=== PATIENT | male | born 1980 | race Caucasian/White ===

== ENCOUNTER 2018-09-06 19:44 | Emergency (ER) | payer OTHER ==
--- NOTE | 2018-09-06 19:50 | PDOC ---
Rapid Medical Evaluation Time Seen by Provider: 09/06/18 19:48 Medical Evaluation: 09/06/18 19:48 HPI: 2 months of lower back and L sided flank pain history of renal stones, hx of stones, took flomax and naproxen without relief from PCP PE:No gross deficits ORDERS: UA, CBC, CT scan Torodol 09/06/18 19:50 Discharge Disposition - Diagnosis Back pain - Referrals - Patient Instructions - Post Discharge Activity
[2018-09-06 19:51] VITALS: BMI 20.3
[2018-09-06] MEDS ORDERED: KETOROLAC TROMETHAMINE 60 MG/2 ML VIAL IM ONE (19:51)
--- NOTE | 2018-09-06 20:33 | PDOC ---
History of Present Illness - General Chief Complaint: Pain Stated Complaint: PAIN ON THE LEFT SIDE Time Seen by Provider: 09/06/18 19:48 History Source: Patient Exam Limitations: No Limitations - History of Present Illness Initial Comments: 09/06/18 21:10 HISTORY OF PRESENT ILLNESS: This is a 38-year-old male with past medical history of kidney stones presents emergency department for evaluation of intermittent left flank pain for one month now been persistent for the past 7- 10 days. Patient was seen by his primary doctor started him on Flomax and Naprosyn no other testing was performed according to the patient. Patient reports the pain starts in the left flank and is radiating to his left lower quadrant and into his left testicle. He denies any dysuria or hematuria. He denies any diarrhea, constipation or rectal bleeding. Patient reports having intermittent nausea but has not vomited. Patient denies any unprotected sex. No recent travel or sick contacts. PAST MEDICAL HISTORY: see HPI SURGICAL HISTORY: Denies ALLERGIES: No known drug allergies REVIEW OF SYSTEMS General/Constitutional: Denies fever or chills. Denies weakness, weight change. HEENT: Denies change in vision. Denies ear pain or discharge. Denies sore throat. Cardiovascular: Denies chest pain or shortness of breath. Respiratory: Denies cough, wheezing, or hemoptysis. Gastrointestinal: Denies nausea, vomiting, diarrhea or constipation. Denies rectal bleeding. Genitourinary: see HPI Musculoskeletal: Denies joint or muscle swelling or pain. Denies neck or back pain. Skin and breasts: Denies rash or easy bruising. Neurologic: Denies headache, vertigo, loss of consciousness, or loss of sensation. Psychiatric: Denies depression or anxiety. Endocrine: Denies increased thirst. Denies abnormal weight change. Hematologic/Lymphatic: Denies anemia, easy bleeding, or history of blood clots. Allergic/Immunologic: Denies hives or skin allergy. Denies latex allergy. PHYSICAL EXAM General Appearance: Well-appearing, appropriately dressed. No apparent distress , no intoxication. Respiratory/Chest: Lungs CTAB. No shortness of breath, chest tenderness, respiratory distress, accessory muscle use. No crackles, rales, rhonchi, stridor , wheezing, dullness Cardiovascular: RRR. S1, S2. No JVD, murmur, bradycardia, tachycardia. Vascular Pulses: Dorsalis-Pedis (R): 2+, Dorsalis-Pedis (L): 2+ Gastrointestinal/Abdominal: Normal bowel sounds. Abdomen soft, non-distended. LLQ tenderness. No rebound tenderness. Negative Psoas/obturator signs. No organomegaly, pulsatile mass, guarding, hernia, hepatomegaly, splenomegaly. Genital exam unremarkable. Lymphatic: No adenopathy, tenderness. Musculoskeletal/Extremities: Normal inspection. FROM of all extremities, normal capillary refill. Pelvis Stable. Left CVA tenderness. No tenderness to extremities, pedal edema, swelling, erythema or deformity. Past History - Past Medical History Allergies/Adverse Reactions: Allergies Allergy/AdvReac Type Severity Reaction Status Date / Time No Known Allergies Allergy Verified 09/06/18 19:50 Home Medications: Ambulatory Orders NK [No Known Home Medication] 09/06/18 COPD: No Kidney Stones: Yes - Immunization History Immunization Up to Date: No - Suicide/Smoking/Psychosocial Hx Smoking History: Current every day smoker Have you smoked in the past 12 months: Yes Number of Cigarettes Smoked Daily: 20 Information on smoking cessation initiated: No Hx Alcohol Use: No Drug/Substance Use Hx: No *Physical Exam - Vital Signs Last Vital Signs Temp Pulse Resp BP Pulse Ox 84 18 108/83 100 09/06/18 19:49 09/06/18 19:49 09/06/18 19:49 09/06/18 19:49 ED Treatment Course - LABORATORY CBC & Chemistry Diagram: 09/06/18 21:02 09/06/18 21:02 - RADIOLOGY Radiology Studies Ordered: Category Date Time Status SPIRAL- RENAL-STONE CT [CT] Stat CT Scan 09/06/18 20:32 Ordered Medical Decision Making - Medical Decision Making 09/06/18 21:12 A/P: 38-year-old male with left flank pain for 7-10 days Left CVA tenderness Left lower quadrant tenderness appreciated Negative psoas and obturator signs Differential diagnosis includes but is not limited to pyelonephritis, renal calculus, STI Labs Urine Spiral CT to rule out stone Toradol 60 mg IM Reassess 09/06/18 23:24 Laboratory testing unremarkable. Urinalysis is unremarkable. CAT scan is read by Dr. Stephen: No CT evidence of urolithiasis or obstructive uropathy. Minimal to mild prostate enlargement. The liver, spleen, pancreas, gallbladder, adrenal glands and kidneys are history no discrete noncontrast pathology. There is no aortic aneurysm. No obvious lymphadenopathy is noted. There is no evidence of pneumoperitoneum, free intraperitoneal fluid or bowel obstruction. Partially visualized appendix demonstrates no gross abnormality. There is also no gross CT evidence of acute appendicitis. Patient reports significant pain relief after Toradol. I discussed the physical exam findings, ancillary test results and final diagnoses with the patient. I answered all of the patient's questions. The patient was satisfied with the care received and felt comfortable with the discharge plan and treatment plan. The patient will call their primary care physician within 24 hours to arrange follow-up and will return to the Emergency Department with any new, persistent or worsening symptoms. *DC/Admit/Observation/Transfer Diagnosis at time of Disposition: Back pain Qualifiers: Back pain location: low back pain Chronicity: chronic Back pain laterality: left Sciatica presence: without sciatica Qualified Code(s): M54.5 - Low back pain; G89.29 - Other chronic pain - Discharge Dispostion Disposition: HOME Condition at time of disposition: Fair Decision to Admit order: No - Referrals Referrals: Cassie Bentley [Primary Care Provider] - - Patient Instructions Additional Instructions: Rest. Take Tylenol or naproxen as needed for pain. Follow manufacturers instructions for appropriate dosage. Warm moist heat applied to your back may help alleviate pain. Return to emergency department for discoloration of the foot, numbness or tingling to the foot, worsening pain, or any other concerns. Thank you very much for choosing us to provide your emergent healthcare needs. - Post Discharge Activity
[2018-09-06] MEDS ORDERED: KETOROLAC TROMETHAMINE 60 MG/2 ML VIAL ONE (20:52)
[2018-09-06 21:09] LABS: BASO % 0.8 % (0-2.0); EOS % 1.9 % (0-4.5); HEMATOCRIT 46.1 % (35.4-49); LYMPH % 27.2 % (8-40); MCH 30.5 pg (25.7-33.7); MCHC 32.6 g/dl (32.0-35.9); MEAN CELL VOLUME 93.4 fl (80-96); MEAN PLT VOLUME 7.8 fl (7.5-11.1); MONO % 10.8 % (3.8-10.2); NEUT % 59.3 % (42.8-82.8); PLATELET COUNT 219 K/MM3 (134-434); RBC 4.94 M/mm3 (4.00-5.60); RDW 13.5 % (11.9-15.9); WHITE BLOOD COUNT 6.4 K/mm3 (4.0-10.0)
[2018-09-06 21:36] LABS: ALBUMIN 4.2 g/dl (3.4-5.0); BILIRUBIN,TOTAL 0.2 mg/dL (0.2-1); CALCIUM 9.6 mg/dL (8.5-10.1); CREATININE 1.1 mg/dL (0.55-1.3); POTASSIUM 4.3 mmol/L (3.5-5.1); TOT PROT 7.1 g/dl (6.4-8.2)
[2018-09-06 22:09] LABS: PH,URINE 6.5 (5.0-8.0); URINE APPEARANCE CLEAR; URINE BILIRUBIN NEGATIVE (NEGATIVE); URINE COLOR YELLOW; URINE GLUCOSE (UA) NEGATIVE (NEGATIVE); URINE KETONE NEGATIVE (NEGATIVE); URINE LEUK ESTERASE NEGATIVE (NEGATIVE); URINE NITRITE NEGATIVE (NEGATIVE); URINE PROTEIN NEGATIVE (NEGATIVE)
--- NOTE | 2018-09-06 22:37 | PDOC ---
*Physical Exam - Vital Signs Last Vital Signs Temp Pulse Resp BP Pulse Ox 84 18 108/83 100 09/06/18 19:49 09/06/18 19:49 09/06/18 19:49 09/06/18 19:49 ED Treatment Course - LABORATORY CBC & Chemistry Diagram: 09/06/18 21:02 09/06/18 21:02 - ADDITIONAL ORDERS Additional order review: Laboratory Results 09/06/18 21:02 Sodium 140 Potassium 4.3 Chloride 105 Carbon Dioxide 30 Anion Gap 5 L BUN 19 H Creatinine 1.1 Est GFR (CKD-EPI)AfAm 99.57 Est GFR (CKD-EPI)NonAf 85.91 Random Glucose 86 Calcium 9.6 Total Bilirubin 0.2 AST 11 L ALT 19 Alkaline Phosphatase 46 Total Protein 7.1 Albumin 4.2 09/06/18 21:02 RBC 4.94 MCV 93.4 MCHC 32.6 RDW 13.5 MPV 7.8 Neutrophils % 59.3 Lymphocytes % 27.2 Monocytes % 10.8 H Eosinophils % 1.9 Basophils % 0.8 - Medications Given in the ED: ED Medications Discontinued Medications Generic Name Dose Route Start Last Admin Trade Name Freq PRN Reason Stop Dose Admin Ketorolac Tromethamine 60 mg 09/06/18 19:51 09/06/18 21:00 Toradol Injection - IM 09/06/18 19:52 60 mg ONCE ONE Administration Medical Decision Making - Medical Decision Making 09/06/18 22:36 Patient seen by the advanced practice provider under my direct supervision. Ancillary testing reviewed as necessary. I agree with plan as outlined by the advanced practice provider. *DC/Admit/Observation/Transfer Diagnosis at time of Disposition: Back pain - Referrals Referrals: Cassie Bentley [Primary Care Provider] - - Patient Instructions - Post Discharge Activity
[2018-09-06 23:39] VITALS: BP 106/80; PULSE 80
== END 2018-09-06 23:41 | disposition home or self-care (01) ==
LOC: JER 19:44
DX: M54.5 Low back pain (principal)
CPT/HCPCS: 36415; 74176-TC; 80053; 81003; 85025; 87086; 99282-25

== ENCOUNTER 2019-04-02 14:04 | Emergency (ER) | payer OTHER ==
[2019-04-02 14:09] VITALS: BP 128/70; PULSE 88; TEMP 98.2; BMI 18.3
--- NOTE | 2019-04-02 17:14 | PDOC ---
History of Present Illness - General Chief Complaint: Chest Pain Stated Complaint: CHEST PAIN Time Seen by Provider: 04/02/19 15:11 - History of Present Illness Initial Comments: 04/02/19 17:12 38-year-old male without comorbidities presents for evaluation of atraumatic chest pain which started this morning. He states the chest pain radiates to his back he has no systemic symptoms comorbidities and has never experienced this pain before pain is exacerbated with activity and relieved with rest no radiation into the jaw or arm Past History - Past Medical History Allergies/Adverse Reactions: Allergies Allergy/AdvReac Type Severity Reaction Status Date / Time No Known Allergies Allergy Verified 04/02/19 14:09 Home Medications: Ambulatory Orders NK [No Known Home Medication] 09/06/18 COPD: No Kidney Stones: Yes - Immunization History Immunization Up to Date: No - Psycho Social/Smoking Cessation Hx Smoking History: Never smoked Have you smoked in the past 12 months: Yes Number of Cigarettes Smoked Daily: 20 Information on smoking cessation initiated: No Hx Alcohol Use: No Drug/Substance Use Hx: No Review of Systems - Review of Systems Cardiac (ROS): Yes: Chest Pain *Physical Exam - Vital Signs Last Vital Signs Temp Pulse Resp BP Pulse Ox 98.2 F 88 20 128/70 98 04/02/19 14:06 04/02/19 14:06 04/02/19 14:06 04/02/19 14:06 04/02/19 16:00 - Physical Exam 04/02/19 17:12 GENERAL: The patient is awake, alert, and fully oriented, in no acute distress. HEAD: Normal with no signs of trauma. EYES: sclera anicteric, conjunctiva clear. ENT: Ears normal tympanic membranes normal oropharynx clear uvula midline NECK: Normal range of motion LUNGS: Breath sounds equal, clear to auscultation bilaterally. No wheezes, and no crackles. HEART: S1 and S2 without murmur, rub or gallop. ABDOMEN: Soft, nontender, normoactive bowel sounds. No guarding, no rebound. No masses. EXTREMITIES: Normal range of motion, no edema. No clubbing or cyanosis. No cords, erythema, or tenderness. NEUROLOGICAL: Cranial nerves II through XII grossly intact. Normal speech, normal gait. PSYCH: Normal mood, normal affect. SKIN: Warm, Dry, normal turgor, no rashes or lesions noted. There is thoracic para musculature tenderness on the right. No gross sensorimotor deficits bilateral upper or lower extremities. No costochondral tenderness. ED Treatment Course - RADIOLOGY Radiology Studies Ordered: Category Date Time Status CHEST PA & LAT [RAD] Stat Radiology 04/02/19 15:12 Taken Medical Decision Making - Medical Decision Making 04/02/19 17:13 Thoracic spine strain. Normal chest x-ray and EKG follow-up with internal medicine Discharge - Discharge Information Problems reviewed: Yes Clinical Impression/Diagnosis: Back pain, Strain of fascia at thorax level Condition: Stable Disposition: HOME - Admission No - Follow up/Referral Referrals: Cassie Bentley [Primary Care Provider] - - Patient Discharge Instructions Patient Printed Discharge Instructions: DI for Atypical Chest Pain, DI for Chest Pain Additional Instructions: This pain appears to be musculoskeletal in nature. Tylenol and Motrin as directed for pain. Return to the emergency room for worsening symptoms. Without fail follow-up with your primary care physician in 1 to 2 days for further evaluation and treatment options. - Post Discharge Activity Work/Back to School Note: Back to Work
[2019-04-02] MEDS ORDERED: IBUPROFEN 600 MG TABLET (FP) PO ONE ×2 (17:22→17:23)
--- NOTE | 2019-04-04 10:26 | EKG ---
Test Reason : Blood Pressure : / mmHG Vent. Rate : 069 BPM Atrial Rate : 069 BPM P-R Int : 126 ms QRS Dur : 084 ms QT Int : 370 ms P-R-T Axes : 038 083 069 degrees QTc Int : 396 ms NORMAL SINUS RHYTHM NORMAL ECG NO PREVIOUS ECGS AVAILABLE Confirmed by ASHLEE MORGAN, RAN ([id number]) on 04/04/2019 10:26:04 AM Referred By: Confirmed By:RAN ROSADO MD
== END 2019-04-02 17:26 | disposition home or self-care (01) ==
LOC: JERFT 14:04
DX: S29.012A Strain of muscle and tendon of back wall of thorax, initial encounter (principal); X58.XXXA Exposure to other specified factors, initial encounter; Y93.89 Activity, other specified; Y92.89 Other specified places as the place of occurrence of the external cause; Y99.8 Other external cause status
CPT/HCPCS: 71046-TC-FY; 93005; 93010; 99282-25

== ENCOUNTER 2020-07-10 13:54 | Emergency (ER) | payer SELFPAY ==
[2020-07-10 13:57] VITALS: BMI 20.9
[2020-07-10 14:46] LABS: BASO % 1.2 % (0-2.0); EOS % 2.5 % (0-4.5); HEMATOCRIT 43.3 % (35.4-49); HEMOGLOBIN 14.3 GM/dL (11.7-16.9); LYMPH % 24.6 % (8-40); MCH 31.3 pg (25.7-33.7); MEAN CELL VOLUME 94.8 fl (80-96); MEAN PLT VOLUME 8.3 fl (7.5-11.1); MONO % 12.3 % (3.8-10.2); NEUT % 59.4 % (42.8-82.8); PLATELET COUNT 232 K/MM3 (134-434); RBC 4.56 M/mm3 (4.00-5.60); RDW 13.6 % (11.9-15.9); WHITE BLOOD COUNT 5.3 K/mm3 (4.0-10.0)
[2020-07-10] MEDS ORDERED: SODIUM CHLORIDE 1,000 ML IV STA (14:52)
[2020-07-10 15:03] LABS: POTASSIUM 3.9 mmol/L (3.5-5.1)
[2020-07-10 15:05] LABS: CALCIUM 9.3 mg/dL (8.5-10.1)
[2020-07-10 15:09] LABS: CREATININE 1.1 mg/dL (0.55-1.3)
[2020-07-10 15:10] LABS: BILIRUBIN,TOTAL 0.6 mg/dL (0.2-1)
[2020-07-10 18:18] LABS: URINE APPEARANCE CLEAR; URINE BILIRUBIN NEGATIVE (NEGATIVE); URINE COLOR YELLOW; URINE GLUCOSE (UA) NEGATIVE (NEGATIVE); URINE KETONE TRACE (NEGATIVE); URINE LEUK ESTERASE NEGATIVE (NEGATIVE); URINE NITRITE NEGATIVE (NEGATIVE); URINE PROTEIN NEGATIVE (NEGATIVE)
[2020-07-10] MEDS ORDERED: LACTULOSE 20 GM/30 ML UDC (FOR ORAL USE ONLY) PO ONE (18:59)
[2020-07-10] MEDS ORDERED: MAG HYDROX/AL HYDROX/SIMETH -MYLANTA- ORAL SUSPENSION PO ONE (18:59)
[2020-07-10 19:13] VITALS: BP 130/79; PULSE 86; TEMP 98.9
== END 2020-07-10 19:14 | disposition home or self-care (01) ==
LOC: JERFT 13:54 → JER 13:54 → JERFT 19:14
PROC: 3E0337Z Introduction of Electrolytic and Water Balance Substance into Peripheral Vein, Percutaneous Approach (ICD-10-PCS; principal; 2020-07-10)
DX: R10.9 Unspecified abdominal pain (principal); K59.00 Constipation, unspecified
CPT/HCPCS: 36415; 74176-TC; 80053; 81003; 83690; 85025; 87086; 87491; 87591; 99285-25

== ENCOUNTER 2023-05-11 12:39 | Emergency (ER) | payer SELFPAY ==
[2023-05-11 12:55] VITALS: BP 120/73; PULSE 89; RESP 17; TEMP 98.2; BMI 21.7
[2023-05-11 14:29] LABS: BASO % 0.6 % (0-2.0); EOS % 1.2 % (0-4.5); HEMATOCRIT 45.7 % (35.4-49); HEMOGLOBIN 15.2 GM/dL (11.7-16.9); LYMPH % 17.1 % (8-40); MCH 31.1 pg (25.7-33.7); MCHC 33.2 g/dl (32.0-35.9); MEAN CELL VOLUME 93.5 fl (80-96); MEAN PLT VOLUME 7.4 fl (7.5-11.1); MONO % 9.6 % (3.8-10.2); NEUT % 71.5 % (42.8-82.8); PLATELET COUNT 248 10^3/uL (134-434); RBC 4.89 M/mm3 (4.00-5.60); RDW 13.8 % (11.9-15.9); WHITE BLOOD COUNT 6.6 K/mm3 (4.0-10.0)
[2023-05-11 14:54] LABS: POTASSIUM 4.4 mmol/L (3.5-5.1)
[2023-05-11 14:56] LABS: ALBUMIN 3.8 g/dl (3.4-5.0); CALCIUM 9.1 mg/dL (8.5-10.1)
[2023-05-11 15:01] LABS: BILIRUBIN,TOTAL 0.3 mg/dL (0.2-1); TOT PROT 7.3 g/dl (6.4-8.2)
== END 2023-05-11 18:00 | disposition home or self-care (01) ==
LOC: JER 12:39
DX: R10.32 Left lower quadrant pain (principal)
CPT/HCPCS: 36415; 74177-TC; 80053; 83690; 85025; 99285-25